=== PATIENT | male | born 1955 | race Caucasian/White ===

== ENCOUNTER 2017-01-07 07:48 | Emergency (ER) | payer OTHER ==
[~2017-01-07] VITALS: Ht 172.7 cm; Wt 72.6 kg
[2017-01-07 07:52] VITALS: BP 176/105
[2017-01-07] MEDS ORDERED: BACTRIM DS TAB1 EACH PO (08:04)
== END 2017-01-07 08:43 | disposition home or self-care (01) ==
LOC: ER 07:48
DX: L02.212 Cutaneous abscess of back [any part, except buttock and flank] (principal); L03.312 Cellulitis of back [any part except buttock and flank]; F17.210 Nicotine dependence, cigarettes, uncomplicated; F10.99 Alcohol use, unspecified with unspecified alcohol-induced disorder

== ENCOUNTER 2017-01-11 06:55 | Emergency (ER) | payer OTHER ==
[~2017-01-11] VITALS: Ht 172.7 cm; Wt 72.6 kg
[~2017-01-11 06:55] MED LIST: BACTRIM DS TAB1 EACH PO
[2017-01-11] MEDS ORDERED: NORCO 5-325 TA1 EACH PO (08:27)
[2017-01-11] MEDS ORDERED: SENNA-DOCUSATE1 EACH PO (08:27)
[2017-01-11 09:08] VITALS: BP 144/98
== END 2017-01-11 09:09 | disposition home or self-care (01) ==
LOC: ER 06:55
DX: L02.212 Cutaneous abscess of back [any part, except buttock and flank] (principal); F17.210 Nicotine dependence, cigarettes, uncomplicated; F10.99 Alcohol use, unspecified with unspecified alcohol-induced disorder

== ENCOUNTER 2017-01-19 12:13 | Emergency (ER) | payer OTHER ==
[~2017-01-19] VITALS: Ht 172.7 cm; Wt 71.8 kg
[~2017-01-19 12:13] MED LIST changes: +NORCO 5-325 TA1 EACH PO; +SENNA-DOCUSATE1 EACH PO
[2017-01-19] MEDS ORDERED: NEXIUM40 MG PO (13:02)
[2017-01-19 14:16] VITALS: BP 136/74
== END 2017-01-19 14:17 | disposition home or self-care (01) ==
LOC: ER 12:13
DX: T88.7XXA Unspecified adverse effect of drug or medicament, initial encounter (principal); T37.0X5A Adverse effect of sulfonamides, initial encounter; Y92.89 Other specified places as the place of occurrence of the external cause